=== PATIENT | male | born 1985 | race Native Hawaiian/Other Pacific Islander ===

== ENCOUNTER 2018-07-07 09:40 | Emergency (ER) | payer SELFPAY ==
[2018-07-07 10:31] VITALS: BP 117/63
[2018-07-07] MEDS ORDERED: BSS OPTH.SOL* BTL ONE (10:46)
[2018-07-07] MEDS ORDERED: Fluorescein Sodium TOPICAL* 1 MG TEST STRIP ONE (10:47)
[2018-07-07] MEDS ORDERED: Tetracaine 0.5% OPTH.SOL 4 ML* 1 DROP BTL ONE (10:47)
--- NOTE | 2018-07-07 10:55 | UC ---
Eye Complaint HPI - HPI Summary HPI Summary: Pt is accompanied by employer on farm. Pt reports through storeroom supervisor that 15 dyas ago he had cow manure get in right eye and then had cow hoof cleaning solution -copper bromide, according to employer- in inner corner of right eye. Pt reports that he rinsed eye out then has been putting visine drops in eye. Pt denies any vision changes, significant pain but states the inner right corner of eye is "irritated and itchy" and has not improved. - History of Current Complaint Chief Complaint: UCEye Stated Complaint: RIGHT EYE CONCERN Time Seen by Provider: 07/07/18 10:33 Hx Obtained From: Poultry Sexer Onset/Duration: Sudden Onset, Lasting Days - 15, Still Present Timing: Constant Severity Initially: Mild Severity Currently: Mild Pain Intensity: 0 Location of Injury: Sclera Character: Dull Aggravating Factor(s): Light, Other - wind Alleviating Factor(s): Nothing Associated Signs And Symptoms: Positive: Negative Related History: Similar Episode - Risk Factors Penetrating Injury Risk Factor: Negative Acute Glaucoma Risk Factors: Eye Inflammation Optic Artery Occlusion Risk Factors: Negative - Allergies/Home Medications Allergies/Adverse Reactions: Allergies Allergy/AdvReac Type Severity Reaction Status Date / Time No Known Allergies Allergy Verified 07/07/18 10:31 PMH/Surg Hx/FS Hx/Imm Hx Previously Healthy: Yes - Surgical History Surgical History: None - Family History Known Family History: Positive: Cardiac Disease, Hypertension - Social History Occupation: Employed Full-time Lives: With Family Alcohol Use: None Substance Use Type: None Smoking Status (MU): Never Smoked Tobacco Have You Smoked in the Last Year: No Review of Systems All Other Systems Reviewed And Are Negative: Yes Constitutional: Positive: Negative Skin: Positive: Negative Eyes: Positive: Eye Redness ENT: Positive: Negative Respiratory: Positive: Negative Cardiovascular: Positive: Negative Gastrointestinal: Positive: Negative Genitourinary: Positive: Negative Motor: Positive: Negative Neurovascular: Positive: Negative Musculoskeletal: Positive: Negative Neurological: Positive: Negative Psychological: Positive: Negative Is Patient Immunocompromised?: No Physical Exam Triage Information Reviewed: Yes Appearance: Well-Appearing Vital Signs: Initial Vital Signs Temp 98.1 F 07/07/18 10:19 Pulse 74 07/07/18 10:19 Resp 16 07/07/18 10:19 BP 117/63 07/07/18 10:19 Pulse Ox 98 07/07/18 10:19 Vital Signs Reviewed: Yes Eyes: Positive: Other: - scleritis right inner corner of eye, no gross injury to cornea, right inner slcera appear to be slightly swollen. ENT Exam: Normal Dental Exam: Normal Neck exam: Normal Respiratory: Positive: No respiratory distress Musculoskeletal Exam: Normal Neurological Exam: Normal Psychological Exam: Normal Skin Exam: Normal Eye Complaint Course/Dx - Course Course Of Treatment: I discussed through storeroom supervisor that I wanted the pt to follow up immediately with an eye customer care agent for further examination and testing. Pt and pt's employer verbalized understanding and agreed to plan of care. - Differential Dx/Diagnosis Differential Diagnosis/HQI/PQRI: Uveitis Provider Diagnosis: Redness of eye, right Discharge - Sign-Out/Discharge Documenting (check all that apply): Patient Departure All imaging exams completed and their final reports reviewed: No Studies - Discharge Plan Condition: Stable Disposition: HOME Patient Education Materials: Eye Pain (ED) Print Language: SLOV[place] Referrals: [facility] [Outside] - If Needed Angel Montes OD [Doctor of Osteopathy] - As Soon As Possible Kamilah Suarez MD [Medical Doctor] - As Soon As Possible No Primary Care Phys,NOPCP [Primary Care Provider] - Additional Instructions: Please follow up with an EYE customer care agent TY. - Billing Disposition and Condition Condition: STABLE Disposition: Home
== END 2018-07-07 11:01 | disposition home or self-care (01) ==
LOC: UCCORT 09:40
DX: H57.89 Other specified disorders of eye and adnexa (principal)
CPT/HCPCS: 99211; A9270-GY; G0463